=== PATIENT | female | born 1985 | race Caucasian/White ===

== ENCOUNTER 2016-09-07 17:50 | Emergency (ER) | payer SELFPAY ==
[2016-09-07] MEDS ORDERED: IBUPROFEN 800 MG TAB PO ONE (18:30)
--- NOTE | 2016-09-07 18:44 | PD ---
HPI Chief Complaint: Injury Time Seen by Provider: 18:43 Travel History International Travel<30 days: No Contact w/Intl Traveler<30days: No Traveled to known affect area: No History of Present Illness HPI 31-year-old female presents to the emergency Department via EMS with complaint of left knee pain. Patient speaks Bulgarian and a family member at the bedside was used to interpret with the patient's agreement. The patient [place] and [place] injuring her left knee. The knee is splinted in a temporary splint that was placed by EMS. She has not been administered any medications for pain. She denies paresthesias, loss of sensation to the affected extremity. Denies chest pain, shortness of breath, abdominal pain, nausea, vomiting, neck pain, back pain. No known allergies. Denies significant past medical history. No other modifying factors or associated signs and symptoms. PFSH Social History Tobacco Use: No Allergies-Medications (Allergen,Severity, Reaction): Coded Allergies: No Known Allergies (Unverified , 09/07/16) Reported Meds & Prescriptions Reported Meds & Active Scripts Active Ibuprofen 800 Mg Tab 800 Mg PO Q6HR PRN Review of Systems Except as stated in HPI: all other systems reviewed are Neg Physical Exam Narrative GENERAL: Well-nourished, well-developed female patient, in no acute distress SKIN: Warm and dry. HEAD: Atraumatic. Normocephalic. EYES: Pupils equal and round. No scleral icterus. No injection or drainage. ENT: Mucosa pink and moist. Airway patent. NECK: Trachea midline. CARDIOVASCULAR: Regular rate. RESPIRATORY: No accessory muscle use. GASTROINTESTINAL: Flat. MUSCULOSKELETAL: Left knee is nonedematous, nonerythematous and without ecchymosis; with tenderness on palpation to the patellar, medial, and lateral aspect; no obvious deformity; unable to assess range of motion secondary to patient guarding and pain. Left lower extremity supple and nontender 2+ pedal pulse and sensory intact and without erythema or edema. No cyanosis. No obvious deformities. No edema. NEUROLOGICAL: Awake and alert. Oriented 3. No obvious cranial nerve deficits. Motor grossly within normal limits. Normal speech. PSYCHIATRIC: Appropriate mood and affect; insight and judgment normal. Data Data Orders Knee, Complete (4vws) (09/07/16 18:21) Ice/Cold Pack (09/07/16 18:21) Ibuprofen (Motrin) (09/07/16 18:30) Crutches (09/07/16 18:58) Canvas Knee Splint (Cks) (09/07/16 ) Immobilizer Knee 20 Inch (09/07/16 ) MDM Medical Decision Making Medical Screen Exam Complete: Yes Emergency Medical Condition: Yes Medical Record Reviewed: Yes Differential Diagnosis Knee sprain, ACL tear, meniscus tear Narrative Course 31-year-old female with left knee injury. Patient speaks Bulgarian and a family mother at the bedside was used for interpretation with the approval of the patient. Ibuprofen administered in the ER. Left knee x-ray ordered. Crutches ordered. Canvas knee splint ordered for support. 1900: Left knee x-ray with no acute findings. Canvas knee splint and crutches provided for support. Instructed patient to follow up with orthopedic. Ibuprofen prescribed for home. Patient verbalizes understanding and agreement with treatment plan. Patient is medically cleared and stable for discharge. Discussed reasons to return to the emergency department. Instructed patient to follow up with primary care provider. Patient agrees with treatment plan. The patients vital signs are stable and the patient is stable for outpatient follow- up and treatment. Patient discharged home, stable and in no acute distress. Diagnosis Primary Impression: Left knee sprain Qualified Code: S83.92XA - Sprain of left knee, unspecified ligament, initial encounter Referrals: Orthopaedic Surgeon Primary Care Physician Patient Instructions: Crutch Instructions (ED), Knee Sprain (ED) Departure Forms: Work Release Enter return to work date: Sep 14, 2016 Additional Instructions: Tylenol or ibuprofen as needed and as directed to reduce pain and inflammation Rest, ice, compress, and elevate extremity to decrease pain and inflammation Knee Brace for support Crutches for support Avoid aggravating activity; increase activity as tolerated Follow-up with primary care provider Follow-up with orthopedic surgeon Return to the emergency department immediately with worsening symptoms Med/Other Pt SpecificInfo: Prescription(s) given Scripts Ibuprofen 800 Mg [id number] Mg PO Q6HR PRN (PAIN) #30 TAB Ref 0 Prov:Gretchen Ramon 09/07/16 Disposition: 01 DISCHARGE HOME Condition: Stable Gretchen Ramon Sep 07, 2016 18:44
[2016-09-07] MEDS ORDERED: IBUP800T23 PO (18:58)
--- NOTE | 2016-09-07 19:33 | RADRPT ---
EXAM DATE/TIME: 09/07/2016 18:54 [facility] COMPARISON: No previous studies available for comparison. INDICATIONS : Left knee pain, injured playing soccer with a twisting movement. MEDICAL HISTORY : None. SURGICAL HISTORY : None. ENCOUNTER: Initial ACUITY: 1 day PAIN SCORE: 8/10 LOCATION: Left knee FINDINGS: No definite fractures, or dislocations are identified. No definite lytic or sclerotic lesion is seen . The joint spaces are well maintained. CONCLUSION: Unremarkable study. Campos Mir MD on September 07, 2016 at 19:31 Board Certified Radiologist. This report was verified electronically.
== END 2016-09-07 20:44 | disposition home or self-care (01) ==
LOC: NEPB 17:50
DX: S83.92XA Sprain of unspecified site of left knee, initial encounter (principal); X58.XXXA Exposure to other specified factors, initial encounter; Y93.66 Activity, soccer; Y92.832 Beach as the place of occurrence of the external cause
CPT/HCPCS: 73564; 99283; E0113; L1830